=== PATIENT | female | born 1975 | race Caucasian/White ===

== ENCOUNTER 2020-06-24 01:37 | Outpatient (CLI) | payer MEDICARE, SELFPAY ==
[2020-06-24 22:13] LABS: SARS-CoV-2 RNA PCR Negative
== END 2020-06-24 01:38 | disposition home or self-care (01) ==
LOC: ANHCOVIDDT 01:37
PROVIDERS: PCP Emergency Medicine; Visit Provider Internal Medicine Gastroenterology
DX: Z01.812 Encounter for preprocedural laboratory examination (principal); Z20.828 Contact with and (suspected) exposure to other viral communicable diseases
CPT/HCPCS: 87635; C9803; U0003

== ENCOUNTER 2020-06-27 00:22 | Day surgery (SDC) | payer MEDICARE, SELFPAY ==
[2020-06-21 09:05] VITALS: BMI 26.5
--- NOTE | 2020-06-27 08:43 | WPDANESEPPF ---
Anes - Initial Pre Proc Eval Procedure: Operation Date: 06/27/20 09:30 Proposed Procedures p Esophagogastroduodenoscopy & Colonoscopy - Rj Carreno MD Date/Time: 06/27/20 08:43 Surgeon: Rj Carreno MD Pre Op Diagnosis: GERD Patient Data Age: 44 Gender: F Height: 1.77 m Weight: 82.7 kg Allergies Allergy/AdvReac Type Severity Reaction Status Date / Time Penicillins Allergy Severe Anaphylactic Verified 06/27/20 08:44 Shock Home Medications Medication Instructions Recorded Confirmed Type aspirin 81 mg tablet,delayed 81 mg PO DAILY 11/17/19 06/21/20 History release clobetasol 0.05 % topical ointment 1 applic TOPICAL DAILY #15 gm 02/16/20 06/21/20 Rx fluticasone furoate 200 See Rx Instructions .ROUTE 05/16/20 06/21/20 Rx mcg-vilanterol 25 mcg/dose .COMPLEX #60 each inhalation powder montelukast 10 mg tablet 10 mg PO .COMPLEX #30 tablet 05/16/20 06/21/20 Rx temazepam 15 mg capsule 15 mg PO ONCE PRN #30 cap 05/18/20 06/21/20 Rx pantoprazole 40 mg tablet,delayed 40 mg PO BID #60 tablet 05/22/20 06/21/20 Rx release peg 3350-electrolytes 236 240 ml PO Q10M #4000 ml 06/20/20 Rx gram-22.74 gram-6.74 gram-5.86 gram solution sucralfate [Carafate] See Rx Instructions .ROUTE .COMPLEX 06/21/20 06/21/20 History Patient hx anesthesia problems: none Family hx anesthesia problems: none [facility] Past Medical History Medical History (Updated 06/07/20 @ 14:21 by MANE Pritchett) Abdominal pain Abnormal CT scan Anemia Asthma Diverticulosis GERD (gastroesophageal reflux disease) History of blood transfusion History of uterine cancer Miscarriage Stroke 2003 2009 2014 Surgical History Surgical History H/O ovarian cystectomy H/O total hysterectomy Tubal ligation status [place] teeth extracted Family History Family History Father History of blood clots Diabetes mellitus Hypertension High cholesterol Cerebrovascular accident Mother Cervical cancer Diabetes mellitus High cholesterol Hypertension Social History Social History Smoking packs per day: 1 Smoking cigarettes per day: 20.0 Years smoked: 20 Smoking pack-years: 20.00 Smoking status: Former smoker Smoking end date: 08/26/08 Alcohol intake: never Substance use: never Substance use type: does not use Living arrangements: with family Spiritual care concerns: No Anes - Eval Final PreProcedure Day of Procedure 06/27/20 08:43 Patient weight: overweight Heart: regular rate and rhythm Lungs: clear to auscultation and normal air movement Airway: Mallampati scale class II Neurological: alert and oriented Last oral intake: >/= 8 hours ASA classification: III Emergent: no Anesthetic plan: proceed Anesthesia type and monitoring: general GIVS Informed Consent: The patient's anesthetic plan and its attendant risks and benefits were discussed with the patient/family/POA. Questions were solicited and answers provided to the satisfaction of the patient/family/POA.
[2020-06-27 08:48] VITALS: BMI 25.4
[2020-06-27] MEDS: LACTATED RINGERS 1,000 ML 150 ML IV CONT (08:56)
--- NOTE | 2020-06-27 09:57 | WPDHPUPDATE1 ---
History and Physical Update Update Date/Time: 06/27/20 09:57 History and Physical has been reviewed, including an updated exam of the patient. There are NO changes in the patient's condition. Risks, benefits, and alternatives have been discussed and questions answered. Patient agrees to proceed with procedure.
[2020-06-27 10:36] VITALS: BP 109/73; PULSE 55; RESP 16; O2SAT 99
[2020-06-27 10:46] VITALS: BP 113/74; PULSE 55; RESP 18; O2SAT 100
[2020-06-27 10:56] VITALS: BP 113/74; PULSE 48; O2SAT 98
== END 2020-06-27 11:20 | disposition home or self-care (01) ==
PROVIDERS: PCP Emergency Medicine; Visit Provider Internal Medicine Gastroenterology
PROC: 0DJ08ZZ Inspection of Upper Intestinal Tract, Via Natural or Artificial Opening Endoscopic (ICD-10-PCS; CPT 43235; principal; 2020-06-27 09:30)
DX: K57.30 Diverticulosis of large intestine without perforation or abscess without bleeding (principal); D12.4 Benign neoplasm of descending colon; K64.8 Other hemorrhoids; K21.9 Gastro-esophageal reflux disease without esophagitis; K30 Functional dyspepsia; J45.909 Unspecified asthma, uncomplicated; D64.9 Anemia, unspecified; Z85.42 Personal history of malignant neoplasm of other parts of uterus; Z87.891 Personal history of nicotine dependence
CPT/HCPCS: 45385; 43239; 88305; J2001; J2704; J7120

== ENCOUNTER 2021-01-15 08:24 | Outpatient (CLI) | payer MEDICARE, SELFPAY ==
--- NOTE | ~2021-01-15 | CT_ITS ---
EXAMINATION: CT abdomen pelvis wo con DATE: 01/15/2021 08:41 INDICATION: Unspecified abdominal pain TECHNIQUE: Computed tomography (CT) of the abdomen and pelvis was performed without intravenous contr ast. The dose-length product (DLP) was 746.86 mGy-cm. Automated exposure control and iterative recons truction technique were employed. COMPARISON: None FINDINGS: Minimal dependent atelectasis is present in the lung bases. The heart size is normal. The l iver, spleen, pancreas, gallbladder, and adrenal glands are normal. The kidneys are unremarkable. No pathologically enlarged abdominal or pelvic lymph nodes are identified. Colonic diverticulosis is pre sent without evidence of diverticulitis. There is no free intraperitoneal gas or evidence of bowel ob struction. The appendix is normal. There is moderate lumbar spondylosis at L5-S1. There is a fat-cont aining umbilical hernia. A moderate volume of colonic stool is present. There is mild wall thickening of the urinary bladder with subtle adjacent fat stranding. IMPRESSION: 1. Possible cystitis. Recommend correlation with urinalysis. Reviewed, dictated and finalized at location A.
== END 2021-01-15 08:25 | disposition home or self-care (01) ==
PROVIDERS: PCP Emergency Medicine; Visit Provider Emergency Medicine
DX: R10.9 Unspecified abdominal pain (principal)
CPT/HCPCS: 74176

== ENCOUNTER 2022-02-27 15:57 | Emergency (ER) | payer MEDICARE, SELFPAY ==
[2022-02-27 15:58] VITALS: BP 130/90; PULSE 78; RESP 16; TEMP 37.1; O2SAT 98
[2022-02-27 17:00] VITALS: BP 110/64; PULSE 65; RESP 16; TEMP 36.4; O2SAT 98
[2022-02-27 17:30] VITALS: BP 109/61; PULSE 61; RESP 16; TEMP 36.8; O2SAT 98
--- NOTE | 2022-02-27 17:38 | ED.NEUROSD ---
HPI - Neuro Symptoms/Deficit General Chief Complaint: Neuro Symptoms/Deficit Stated Complaint: facial droop, arm weakness Time Seen by Provider: 02/27/22 16:08 Source: patient History of Present Illness HPI Narrative: Patient presents with slurred words saw her primary care doctor primary care doctor was concerned for pronator drift and she was referred to the ER for evaluation. She has had symptoms for the past few days primarily on her left face she reports she drinks a little bit slurring her words having a hard time blinking her eye. Some pain around her left ear reports she had a viral infection several weeks ago but is otherwise feeling well. She denies any extremity weakness or numbness at the time of my evaluation. She denies any headache nausea vomiting changes in vision or change in hearing. 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 EYES: Denies visual changes, redness, or discharge. ENT: Denies rhinorrhea, congestion, sore throat, or otalgia. CARDIOVASCULAR: Denies chest pain, palpitations, or edema. RESPIRATORY: Denies cough or dyspnea. GASTROINTESTINAL: Denies abdominal pain, nausea, vomiting, or diarrhea. GENITOURINARY: Denies dysuria or hematuria. SKIN: Denies rash or itching. MUSCULOSKELETAL: Denies back pain, joint pain, or myalgia. NEUROLOGIC: Denies headache, numbness, dizziness, or weakness. PSYCHIATRIC: Denies anxiety or depression. All systems reviewed & are unremarkable except as noted in HPI and below PMFSH Past Medical History Medical History Abdominal pain Abnormal CT scan Anemia Asthma Diverticulosis GERD (gastroesophageal reflux disease) History of blood transfusion History of uterine cancer Miscarriage Stroke 2004 2009 2014 Surgical History Surgical History H/O ovarian cystectomy H/O total hysterectomy Tubal ligation status [place] teeth extracted Family History Family History Father History of blood clots Diabetes mellitus Hypertension High cholesterol Cerebrovascular accident Mother Cervical cancer Diabetes mellitus High cholesterol Hypertension Social History Social History Social History: Patient drinks 1 cup of coffee daily and exercises daily. Smoking packs per day: 1 Smoking cigarettes per day: 20.0 Years smoked: 20 Smoking pack-years: 20.00 Smoking status: Former smoker Second hand tobacco smoke exposure: No Smoking end date: 08/26/06 Alcohol intake: never Substance use: never Substance use type: does not use Gender identity (if verbalized by the patient): Female Sexual Orientation (if Verbalized by the Patient): Straight or Heterosexual Spiritual care concerns: No Exam Narrative: GENERAL: Well-appearing, well-nourished, and in no acute distress. HEAD: Normocephalic, atraumatic. EYES: PERRLA and EOMI. ENT: Nares clear, no rhinorrhea or epistaxis. Mucous membranes moist. NECK: Supple. No masses. No JVD CHEST: Clear to auscultation. No respiratory distress. No wheezes rales or rhonchi HEART: Regular rate and rhythm. No murmur heard. Normal peripheral pulses. EXTREMITIES: Normal range of motion. No edema. SKIN: Warm, dry, no rash. NEURO: Current nerve VII palsy, including upper and lower face minor cranial nerves remain intact patient has 5 out of 5 strength in all extremities sensation intact to light kiet
[2022-02-27 17:53] VITALS: BP 107/84; PULSE 61; RESP 16; O2SAT 98
== END 2022-02-27 17:54 | disposition home or self-care (01) ==
PROVIDERS: Emergency Provider Emergency Medicine; PCP Emergency Medicine
DX: G51.0 Bell's palsy (principal); Z20.822 Contact with and (suspected) exposure to COVID-19; D64.9 Anemia, unspecified; J45.909 Unspecified asthma, uncomplicated; K57.90 Diverticulosis of intestine, part unspecified, without perforation or abscess without bleeding; K21.9 Gastro-esophageal reflux disease without esophagitis
CPT/HCPCS: 99283

== ENCOUNTER 2022-11-28 11:10 | Outpatient (CLI) | payer MEDICARE, SELFPAY ==
--- NOTE | ~2022-11-28 | XR_ITS ---
EXAMINATION: HAND-TYRELL ARTHRITIS 3+VIEWS DATE: 11/28/2022 11:19 INDICATION: Arthritis TECHNIQUE: Posteroanterior, lateral, and oblique views of the left and of the right hands as well as a ballcatchers view of both hands were obtained. COMPARISON: None. FINDINGS: Alignment is normal. No fracture. Minimal to mild polyarticular osteoarthritis at multiple distal int erphalangeal joints at both hands. Small lucency at the ulnar head of the left fourth middle phalanx which could represent either a degenerative subchondral cyst or erosion. No other lesions suspicious for erosions identified in either hand. Soft tissues are unremarkable. IMPRESSION: 1. Minimal to mild polyarticular osteoarthritis at the bilateral distal interphalangeal joints. 2. Small lucent lesion at the head of the left fourth distal phalanx most likely degenerative subchon dral cyst although differential would include an erosion in the setting of a crystalline or inflammat ory arthritis. Reviewed, dictated and finalized at location A. IMPRESSION: 1. Minimal to mild polyarticular osteoarthritis at the bilateral distal interph alangeal joints. 2. Small lucent lesion at the head of the left fourth distal phalanx most likel y degenerative subchondral cyst although differential would include an erosion in the setting of a crystalline or inflammatory arthritis.
--- NOTE | ~2022-11-28 | XR_ITS ---
EXAMINATION: XR foot RT standing 2V, XR foot LT standing 2V DATE: 11/28/2022 11:19 INDICATION: Arthritis TECHNIQUE: 1. Dorsoplantar and lateral views of the left foot were obtained. 2. Dorsoplantar and lateral views of the right foot were obtained. COMPARISON: None. FINDINGS: Bone alignment is normal at both feet. No fracture. Joint spaces are normal. Soft tissues are unremar kable. IMPRESSION: 1. Negative bilateral foot radiographs. Reviewed, dictated and finalized at location A. IMPRESSION: 1. Negative bilateral foot radiographs.
[2022-11-28 11:25] LABS: Basophils Percent Auto 0.5 % (0.2-1.2); Eosinophils Absolute Auto 0.1 K/mm3 (0-0.3); Eosinophils Percent Auto 1.4 % (0-4.4); Hematocrit 43.2 % (37.0-47.0); Hemoglobin 14.5 g/dL (12.0-15.0); Immature Granulocyte Absolute 0.01 K/mm3 (0.00-0.031); Immature Granulocyte Percent A 0.2 % (0-0.5); Lymphocytes Percent Auto 39.9 % (18.3-44.2); Mean Corpuscular HGB Conc 33.6 g/dl (32-36); Mean Corpuscular Hemoglobin 28.2 pg (26-34); Mean Platelet Volume 11.4 fl (7.4-10.4); Monocytes Absolute Auto 0.5 K/mm3 (0.1-0.6); Neutrophils Absolute Auto 3.1 K/mm3 (1.3-6.7); Platelet Count Result 282 k/mm3 (150-375); Red Blood Count 5.14 M/mm3 (4.2-5.4); Red Cell Distribution Width 13.3 % (11.5-14.5); White Blood Count 6.3 K/mm3 (4.5-10.0)
[2022-11-28 11:37] LABS: Rheumatoid Factor < 8.6 IU/ML (<12)
[2022-11-28 11:40] LABS: Alanine Aminotransferase 280 U/L (6-35); Albumin Level 4.7 g/dL (3.5-5.1); Alkaline Phosphatase 125 U/L (38-126); Anion Gap 8 mmol/L (8-16); Aspartate Amino Transferase 107 U/L (14-36); Bilirubin,Total 0.7 mg/dL (0.2-1.3); Blood Urea Nitrogen 13 mg/dL (7-17); CRP < 0.5 mg/dL (<1.0); Calcium 9.4 mg/dL (8.4-10.2); Carbon Dioxide 26 mmol/L (22-30); Chloride 104 mmol/L (98-107); Creatine Kinase 50 U/L (30-135); Estimated Glomerular Filt Rate > 60; Glucose 102 mg/dL (65-110); Potassium 4.2 mmol/L (3.4-5.0); Sodium 138 mmol/L (137-145); Uric Acid 5.1 mg/dL (2.5-7.5)
[2022-11-28 11:47] LABS: Complement C3 131 mg/dL (88-165)
[2022-11-28 15:10] LABS: Erythrocyte Sedimentation Rate 4 mm/hr (0-20)
[2022-12-02 04:57] LABS: Angiotensin Converting Enzyme 39 U/L (9-67)
[2022-12-02 17:15] LABS: SM Antibody <1.0; SM/RNP Antibody <1.0
[2022-12-02 23:05] LABS: Vitamin D 1,25 (OH)2 Total 47 pg/mL (18-72); Vitamin D2 1,25 (OH)2 <8 pg/mL; Vitamin D3 1,25 (OH)2 47 pg/mL
[2022-12-04 11:17] LABS: SS-A <1.0; SS-B <1.0
[2022-12-05 22:32] LABS: Lupus dRVVT Screen 32 sec (<=45); PTT-LA Screen 29 sec (<=40)
[2022-12-10 21:35] LABS: Anti Cyclic Citrullinated Pept <16 Units (<20)
== END 2022-11-28 11:11 | disposition home or self-care (01) ==
PROVIDERS: PCP Emergency Medicine; Visit Provider Internal Medicine
DX: E55.9 Vitamin D deficiency, unspecified (principal); M19.90 Unspecified osteoarthritis, unspecified site; R06.02 Shortness of breath; R76.8 Other specified abnormal immunological findings in serum; Z86.73 Personal history of transient ischemic attack (TIA), and cerebral infarction without residual deficits; M19.041 Primary osteoarthritis, right hand; M19.042 Primary osteoarthritis, left hand
CPT/HCPCS: 36415; 73130; 73620; 80053; 82164; 82306; 82550; 82652; 84550; 85025; 85613; 85652; 85730; 86140; 86160; 86200; 86225; 86235; 86430

== ENCOUNTER 2023-01-01 08:42 | Outpatient (CLI) | payer MEDICARE, SELFPAY ==
--- NOTE | ~2023-01-01 | MR_ITS ---
EXAMINATION: MR brain/brain stem wo/w con DATE: 01/01/2023 09:43 INDICATION: Nontraumatic intracerebral hemorrhage. Headaches and memory loss. TECHNIQUE: Magnetic resonance imaging (MRI) of the brain and brainstem was performed without and with 17 mL Multihance intravenous contrast. Sequences included sagittal and axial T1-weighted SE, axial d iffusion-weighted FS SE, axial T2*-weighted GRE, axial 3D SWAN, axial T2-weighted FLAIR, and axial T2 -weighted FSE. Postcontrast axial and coronal T1-weighted SE was obtained. Apparent diffusion coeffic ient (ADC) maps were created. COMPARISON: None. FINDINGS: There are no areas of restricted diffusion to suggest acute infarction. No intracranial hemorrhage or abnormal intracranial mass lesion. There are no intraparenchymal signal abnormalities seen on the ot her pulse sequences. Specifically no foci of susceptibility artifact on the 1 sequence to suggest the presence of old blood products. The ventricles are symmetric and normal in size. There are no abnorm al extra-axial fluid collections. Flow voids are seen in the cerebral arteries on the T2-weighted seq uences consistent with their expected patency. Moderate mucosal thickening in the paranasal sinuses. Visualized orbits and soft tissues are unremarkable. There are no areas of abnormal enhancement on th e post contrast images. IMPRESSION: 1. Normal brain. 2. Sinus disease. Reviewed, dictated and finalized at location A.
== END 2023-01-01 08:43 ==
PROVIDERS: PCP Emergency Medicine; Visit Provider Otolaryngology
DX: G45.9 Transient cerebral ischemic attack, unspecified (principal); H93.A2 Pulsatile tinnitus, left ear; I61.9 Nontraumatic intracerebral hemorrhage, unspecified; I69.398 Other sequelae of cerebral infarction; R26.89 Other abnormalities of gait and mobility
CPT/HCPCS: 70553; A9577

== ENCOUNTER 2023-01-02 08:47 | Outpatient (CLI) | payer MEDICARE, SELFPAY | END 2023-01-02 08:48 | disposition home or self-care (01) | LOC: ANHAUDIO 08:48 | PROVIDERS: PCP Emergency Medicine; Visit Provider Otolaryngology | DX: H90.A22 Sensorineural hearing loss, unilateral, left ear, with restricted hearing on the contralateral side (principal) | CPT/HCPCS: 92557; 92567 ==

== ENCOUNTER 2023-01-31 08:05 | Outpatient (CLI) | payer MEDICARE, SELFPAY ==
--- NOTE | ~2023-01-31 | CT_ITS ---
EXAMINATION: CT abdomen pelvis w con DATE: 01/31/2023 08:39 INDICATION: Left-sided abdominal pain TECHNIQUE: Computed tomography (CT) of the abdomen and pelvis was performed with 100 CC Omnipaque 350 intravenous contrast. Automated exposure control and iterative reconstruction technique were employe d. Exam dose: 1089.12 mGy-cm total exam DLP. COMPARISON: 01/15/2021 CT abdomen pelvis FINDINGS: The lung bases are clear of infiltrate or consolidation. Normal heart size. No pericardial or pleural effusion. There is diffuse hepatic steatosis. No hepatic, splenic, pancreatic, and adrenal or suspicious renal space occupying mass lesion is evident. No bile duct or pancreatic duct dilatation. The gallbladder i s unremarkable. Suggestion of a very small cyst of each kidney. No urinary tract calculus or hydroureteronephrosis. T he urinary bladder is unremarkable. Status post hysterectomy. Normal caliber of the abdominal aorta. No intraperitoneal or retroperitoneal or pelvic mass lesion or adenopathy or ascites. Diverticulosis of left and right colon; no CT evidence of diverticulitis. Normal appendix. No bowel o bstruction, bowel wall thickening, pneumatosis or intraperitoneal free air is detected. Small fat-containing umbilical hernia. No suspicious osteolytic or osteoblastic lesions are detected. Prominent degenerative disc disease an d mild retrolisthesis at L5-S1. IMPRESSION: Hepatic steatosis Probable very small cyst of each kidney Diverticulosis of the colon; no CT evidence of diverticulitis Normal appendix Status post hysterectomy Degenerative disc disease and mild retrolisthesis at L5-S1 Reviewed, dictated and finalized at Location A. Reviewed, dictated and finalized at location []
== END 2023-01-31 08:06 ==
LOC: MICIMG 08:07
PROVIDERS: PCP Emergency Medicine; Visit Provider Emergency Medicine
DX: K76.0 Fatty (change of) liver, not elsewhere classified (principal); K57.30 Diverticulosis of large intestine without perforation or abscess without bleeding; M51.37 Other intervertebral disc degeneration, lumbosacral region
CPT/HCPCS: 74177; Q9967

== ENCOUNTER → 2023-04-21 08:38 | Outpatient (CLI) | payer MEDICARE, MEDICAID, SELFPAY ==
--- NOTE | ~2023-04-21 | MR_ITS ---
MRI of the right hand CLINICAL HISTORY: Abnormal immunological findings TECHNIQUE: Axial T1-weighted, T1 fat-sat, and STIR images, coronal T1-weighted and STIR images, and s agittal T1-weighted and STIR images were performed. Following intravenous administration of 19 cc Mul tiHance gadolinium, T1-weighted fat-sat imaging was performed in the axial and sagittal planes. FINDINGS: Bone marrow signals are unremarkable. No fracture, bone marrow edema, or osteomyelitis iden tified. Joint spaces are preserved. No degenerative or erosive change identified. No joint effusion s een. Collateral ligaments appear intact. Flexor and extensor tendons are unremarkable. Visualized musculature unremarkable. There is a probabl e irregular ganglion cyst along the volar aspect of the radial scaphoid articulation, measuring up to approximately 1.1 cm in diameter.. No abnormal postcontrast enhancement identified. IMPRESSION: Probable 1.1 cm irregular, lobulated ganglion cyst along the volar aspect of the radial scaphoid blossom culation. No other significant findings. Reviewed, dictated and finalized at location M. IMPRESSION: Probable 1.1 cm irregular, lobulated ganglion cyst along the volar aspect of th e radial scaphoid articulation. No other significant findings.
--- NOTE | ~2023-04-21 | MR_ITS ---
MRI of the left hand CLINICAL HISTORY: Abnormal immunological findings TECHNIQUE: Axial T1-weighted, T1 fat-sat, and STIR images, coronal T1-weighted and STIR images, and s agittal T1-weighted and STIR images were performed. Following intravenous administration of 19 cc Mul tiHance gadolinium, T1-weighted fat-sat imaging was performed in the axial and sagittal planes. FINDINGS: Bone marrow signals are unremarkable. No fracture, bone marrow edema, or osteomyelitis iden tified. Joint spaces are preserved. No degenerative or erosive change identified. No joint effusion s een. Collateral ligaments appear intact. Flexor and extensor tendons are unremarkable. Visualized musculature unremarkable. No soft tissue mas s or fluid collection evident. No abnormal postcontrast enhancement identified. IMPRESSION: No significant abnormality identified. Reviewed, dictated and finalized at location .
== END ==
PROVIDERS: PCP Emergency Medicine; Visit Provider Internal Medicine
DX: R76.8 Other specified abnormal immunological findings in serum (principal); M19.90 Unspecified osteoarthritis, unspecified site
CPT/HCPCS: 73220; A9577

== ENCOUNTER 2023-05-09 11:03 | Outpatient (CLI) | payer MEDICARE, MEDICAID, SELFPAY ==
--- NOTE | ~2023-05-09 | XR_ITS ---
EXAMINATION: XR chest 2V 05/09/2023 11:17 INDICATION: Cough. PROCEDURE: 2 view chest COMPARISON: 12/04/2018 FINDINGS: The lungs are clear. The cardiomediastinal silhouette is within normal limits. There are no pleural effusions. There is no pneumothorax suspected. IMPRESSION: 1: NO ACUTE CARDIOPULMONARY DISEASE. Reviewed, dictated and finalized at location B.
== END 2023-05-09 11:04 | disposition home or self-care (01) ==
PROVIDERS: PCP Emergency Medicine; Visit Provider Emergency Medicine
DX: R07.9 Chest pain, unspecified (principal)
CPT/HCPCS: 71046

== ENCOUNTER 2023-09-24 08:44 | Outpatient (CLI) | payer MEDICARE, MEDICAID, SELFPAY ==
--- NOTE | 2023-09-24 08:51 | EST_ITS ---
Patient Info Name: Marybel Harrison Age: 47 years : 1975 Gender: Female Ht: 70 in Wt: 194 lbs BSA: 2.10 m2 HR: 70 bpm BP: 131 / 76 mmHg Heart Rhythm: Sinus Rhythm Exam Date: 09/24/2023 8:56 AM Exam Location: Echo Lab Patient Status: Outpatient Admit Date: 09/24/2023 Staff Ordering Physician: Mario Steele MD Tool Maintenance Technician: Hanna Kimball RDCS Attending Provider: LUIS MIGUEL DEL REAL Referring Physician: Ivette BENITEZ; Exercise Technologist: Hanna Kimball RDCS Exercise Physician: Luis Miguel Del Real DO Exam Type: CA stress echo Study Info Indications R06.02 - Shortness of breath Treadmill exercise stress echocardiogram is performed. Summary 1. 1. Negative Onel exercise stress test for ischemic ST changes by ECG criteria. However, patient achieved only 80% of MPHR for age group which reduces sensitivity of the test. 2. 2. Reduced functional capacity, achieving 7 METs of workload. 3. 3. Appropriate HR response to exercise. 4. 4. Appropriate HR recovery at 1 minute post exercise. 5. 5. Negative stress echocardiogram for ischemia by wall motion analysis. 6. 6. Patient informed of the above results. Stress Echo Findings Left Ventricle Appropriate increase in LV endocardial thickening with systole. Appropriate augmentation of contractility with systole. No wall motion abnormality. Left Ventricle Preserved LV systolic function, no wall motion abnormality. Protocol: Onel Stress ECG Details Stage: REST Duration (min): 1 min : 4 sec Speed (mph): 0.0 Grade (%): 0 HR (bpm): 73 SBP (mmHg): 131 DBP (mmHg): 76 METS: --- Stage: REST Duration (min): 11 min : 42 sec Speed (mph): 0.0 Grade (%): 0 HR (bpm): 75 SBP (mmHg): 131 DBP (mmHg): 76 METS: --- Stage: STAGE 1 Duration (min): 1 min : 0 sec Speed (mph): 1.7 Grade (%): 10 HR (bpm): 84 SBP (mmHg): 131 DBP (mmHg): 76 METS: --- Stage: STAGE 1 Duration (min): 2 min : 0 sec Speed (mph): 1.7 Grade (%): 10 HR (bpm): 79 SBP (mmHg): 131 DBP (mmHg): 76 METS: --- Stage: STAGE 1 Duration (min): 3 min : 0 sec Speed (mph): 1.7 Grade (%): 10 HR (bpm): 95 SBP (mmHg): 155 DBP (mmHg): 79 METS: --- Stage: STAGE 2 Duration (min): 1 min : 0 sec Speed (mph): 2.5 Grade (%): 12 HR (bpm): 122 SBP (mmHg): 155 DBP (mmHg): 79 METS: --- Stage: STAGE 2 Duration (min): 1 min : 46 sec Speed (mph): 0.0 Grade (%): 0 HR (bpm): 114 SBP (mmHg): 155 DBP (mmHg): 79 METS: --- Stage: RECOVERY Duration (min): 0 min : 13 sec Speed (mph): 0.0 Grade (%): 0 HR (bpm): 106 SBP (mmHg): 155 DBP (mmHg): 79 METS: --- Stage: RECOVERY Duration (min): 1 min : 13 sec Speed (mph): 0.0 Grade (%): 0 HR (bpm): 97 SBP (mmHg): 117 DBP (mmHg): 86 METS: --- Stage: RECOVERY Duration (min): 2 min : 13 sec Speed (mph): 0.0 Grade (%): 0 HR (bpm): 79 SBP (mmHg): 117 DBP (mmHg): 86 METS: --- Stage: RECOVERY Duration (min): 2 min : 13 sec Speed (mph): 0.0 Grade (
== END 2023-09-24 08:45 | disposition home or self-care (01) ==
LOC: ANHCARD 08:45
PROVIDERS: PCP Emergency Medicine; Visit Provider Emergency Medicine
DX: R06.02 Shortness of breath (principal)
CPT/HCPCS: 93351

== ENCOUNTER 2023-11-06 09:38 | Outpatient (CLI) | payer MEDICARE, MEDICAID, SELFPAY ==
--- NOTE | 2023-11-06 09:51 | ECHO_ITS ---
Patient Info Name: Marybel Harrison Age: 48 years : 1975 Gender: Female Ht: 69 in Wt: 198 lbs BSA: 2.11 m2 HR: 61 bpm BP: 128 / 76 mmHg Technical Quality: Good Exam Date: 11/06/2023 9:55 AM Exam Location: Echo Lab Patient Status: Outpatient Admit Date: 11/06/2023 Staff Ordering Physician: Mario Steele MD Plastics Patternmaker: Attending Provider: Mario Steele MD Referring Physician: Ivette BENITEZ; Exam Type: CA echo doppler color flow Study Info Indications I10 - Essential (primary) hypertension Complete two-dimensional, color flow and Doppler transthoracic echocardiogram is performed. Summary 1. Complete two-dimensional, color flow and Doppler transthoracic echocardiogram is performed. 2. Left ventricular chamber dimension is normal. 3. Left ventricular systolic function is normal, estimated at 60-65%. 4. The left ventricular diastolic function is grade I diastolic dysfunction. 5. E/e' 5 is not elevated. 6. There is trace aortic valve regurgitation. 7. There is mild mitral valve regurgitation. 8. There is trace tricuspid valve regurgitation. 9. There is trace pulmonic regurgitation. Left Ventricle E/e' 5 is not elevated. Left ventricular chamber dimension is normal. Left ventricular systolic function is normal, estimated at 60-65%. The left ventricular diastolic function is grade I diastolic dysfunction. Right Ventricle Right ventricular chamber dimension is normal. Right ventricular systolic function is normal. Left Atria Left atrial chamber dimension is normal. Right Atria Right atrial chamber dimension is normal. Aortic Valve The aortic valve is trileaflet. There is no aortic valve stenosis. There is trace aortic valve regurgitation. Pulmonic Valve There is trace pulmonic regurgitation. Mitral Valve There is no mitral valve stenosis. There is mild mitral valve regurgitation. Tricuspid Valve RVSP is not calculated due to an inadequate TR jet. There is trace tricuspid valve regurgitation. Pericardium/Pleural There is no pericardial effusion. Inferior Vena Cava Normal inferior vena cava with >50% collapse upon inspiration consistent with normal right atrial pressure, 5 mmHg. Aorta The aortic root size at the sinus of Valsalva is normal. Left Ventricular Outflow Tract Name Value Normal LVOT 2D LVOT Diameter 2.0 cm LVOT Doppler LVOT Peak Gradient 3 mmHg LVOT Mean Gradient 1 mmHg LVOT VTI 16 cm LVOT VTI/AV VTI Ratio 0.6 LVOT Stroke Volume 50 ml LVOT CO 3.0 l/min LVOT CI 1.4 l/min/m2 Pulmonic Valve Name Value Normal PV Doppler PV Peak Gradient 2 mmHg Mitral Valve Name Value
== END 2023-11-06 09:39 | disposition home or self-care (01) ==
LOC: ANHCARD 09:40
PROVIDERS: PCP Emergency Medicine; Visit Provider Emergency Medicine
DX: R06.09 Other forms of dyspnea (principal); G45.9 Transient cerebral ischemic attack, unspecified
CPT/HCPCS: 93306

== ENCOUNTER 2023-11-08 09:41 | Outpatient (CLI) | payer MEDICARE, MEDICAID, SELFPAY ==
--- NOTE | ~2023-11-08 | US_ITS ---
EXAMINATION: US carotid duplex BI DATE: 11/08/2023 11:05 INDICATION: Other specified symptoms of the circulatory system. TECHNIQUE: Grayscale, color Doppler, and pulsed Doppler images of the cervical carotid arteries were obtained. The degree of vessel stenosis is placed in one of the following categories: normal, <50%, 5 0-69%, >=70% but less than near-occlusion, near-occlusion, or total occlusion. Note that percent sten osis relative to normal distal artery lumen diameter is indirectly measured from velocity measurement s as described by Shadi, et al. Radiology 2003; 229:340-346. COMPARISON: None. FINDINGS: RIGHT: The right common carotid artery (CCA) peak systolic velocity (PSV) is 86 cm/s. The right internal car otid artery (ICA) PSV is 70 cm/s. The right ICA end-diastolic velocity (EDV) is 38 cm/s. The right IC A/CCA PSV ratio is 0.8. Grayscale and color Doppler images yield an estimate of <50% diameter reducti on from plaque in the ICA. The external carotid artery (ECA) PSV is 75 cm/s. There is antegrade flow in the right vertebral artery. LEFT: The left CCA PSV is 82 cm/s. The left ICA PSV is 58 cm/s. The left ICA EDV is 35 cm/s. The left ICA/C CA PSV ratio is 1.3. Grayscale and color Doppler images yield an estimate of <50% diameter reduction from plaque in the ICA. The ECA PSV is 68 cm/s. There is antegrade flow in the left vertebral artery. IMPRESSION: 1. <50% stenosis in the right internal carotid artery. 2. <50% stenosis in the left internal carotid artery. Reviewed, dictated and finalized at location A.
== END 2023-11-08 09:42 | disposition home or self-care (01) ==
LOC: ANHIMG 09:43
PROVIDERS: PCP Emergency Medicine; Visit Provider Emergency Medicine
DX: I65.23 Occlusion and stenosis of bilateral carotid arteries (principal); R09.89 Other specified symptoms and signs involving the circulatory and respiratory systems
CPT/HCPCS: 93880